=== PATIENT | female | born 1940 | race African-American/Black ===

== ENCOUNTER 2016-12-21 09:35 | Day surgery (SDC) | payer MEDICARE ==
[~2016-12-21] VITALS: Ht 160 cm; Wt 77.3 kg
--- NOTE | ~2016-12-21 | OP ---
PATIENT NAME: MIGUELITO GUTIERREZ MEDICAL RECORD: [id number] :44 LOCATION:D.OPS ADMISSION DATE: SURGEON: ALIDA BISHOP DO DATE OF OPERATION: 12/21/2016 PROCEDURE: Colonoscopy with hot forcep polypectomy. INDICATIONS FOR PROCEDURE: Personal history of colonic polyps and family history positive for colon cancer in her brother. SCOPE: Olympus video pediatric colonoscope. MEDICATIONS: Propofol 430 mg IV per anesthesia. ESTIMATED BLOOD LOSS: Minimal withdrawal time 9 minutes. COMPLICATIONS: None. FINDINGS: Informed consent was given. The patient was made comfortable with the above medication. After reaching an adequate level of sedation by slow IV push, the patient was placed on her left side. A digital rectal examination was performed. On the digital examination, the patient had apparent medium to large hemorrhoids without active bleeding. There was also some questionable condylomatous changes. After this, the endoscope was advanced under direct visualization through the anus to the cecum, where the appendiceal orifice and ileocecal valve were visualized. The scope was slowly withdrawn and mucosa was carefully examined. The prep was fair to good. There was a single polyp located in the transverse colon which was benign appearing and sessile. It measured approximately 4-5 mm in diameter. It was removed in 1 piece with hot forceps and completely retrieved. There was no significant bleeding. Retroflexion was performed in the rectum where a small nonbleeding internal hemorrhoids were visualized. The endoscope is withdrawn from the patient. The patient tolerated the procedure well and there were no complications. IMPRESSION: 1. Transverse colon polyp, which was benign appearing and sessile in the transverse colon. It was removed with hot forceps. 2. Small nonbleeding internal hemorrhoids. 3. Medium to large external hemorrhoids without active bleeding. 4. Condylomatous changes perianally. PLAN AND RECOMMENDATIONS: 1. Discharge home when recovery parameters are met. 2. High fiber diet. 3. Continue current medications. 4. We will make a referral to surgery for evaluation of possible anal condyloma, possible biopsies as well as the large external hemorrhoids. 5. Recommend a repeat colonoscopy in 3-5 years for personal history of polyps and family history of colon cancer. TRANSINT:[id number] Voice Confirmation ID: [id number] DOCUMENT ID: [id number] OPERATIVE REPORT [id number] MIGUELITO GUTIERREZALIDA BASHIR DO CC: [id number] DICTATION DATE: 12/21/16 1316 [employer] ANALYST: 12/22/16 0032 [facility] [place] 12/21/[address] [facility] [address] [id number]
--- NOTE | ~2016-12-21 | CN ---
PATIENT NAME:MIGUELITO GUTIERREZ MEDICAL RECORD: [id number] : 44 LOCATION:D.OPS ADMIT DATE: ACCOUNT: [id number] CONSULTING PHYSICIAN: WON KIDD MD REFERRING PHYSICIAN: ALIDA BISHOP DO DATE OF CONSULTATION: 12/21/2016 CHIEF COMPLAINT: Condyloma. HISTORY OF PRESENT ILLNESS: The patient underwent a colonoscopy. 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 I was asked to see the patient in consultation. The patient is a poor historian. She states that the lesions have been present for a long time. Palpation aggravates. Nothing alleviates. The amount of tenderness that she has particularly on vaginal examination limits my ability to really evaluate the vagina other than some light palpation. There are nodules that are verrucous and may represent squamous cell cancer around the anus. They involve the perineum as well as the vagina. I think the patient would be best treated by a gynecologic oncologist. We are going to see if we can get her in to a gynecologic oncologist. I will have my office staff to start working on that. HOME MEDICATIONS: Elavil, Sensipar, Nexium, Bystolic, Pravachol, Lyrica. ALLERGIES: No known drug allergies. SOCIAL HISTORY: Nonsmoker. PAST MEDICAL AND SURGICAL HISTORY: History of renal transplant, arthritis, gastroesophageal reflux, hypertension, liver fibrosis, history of hysterectomy, prior colonoscopy as well. REVIEW OF SYSTEMS: Limited due to the patient is a poor historian. PHYSICAL EXAMINATION: GENERAL: The patient does not appear acutely ill. She does not appear chronically ill. VITAL SIGNS: Reviewed. The entire examination was performed in the presence of a female. HEAD: External ears appear normal. EYES: Extraocular movements are intact. NECK: Trachea is midline. CHEST: No intercostal retractions. PULMONARY: Nonlabored. No stridor. ABDOMEN: Nontender. EXTREMITIES: No peripheral cyanosis. INTEGUMENT: No rash. Verrucous lesions as described above. BACK: Mild thoracic kyphosis. LYMPHATICS: No lymphangitic streaking of the exposed extremities. PSYCHIATRIC: Normal affect. NEUROLOGIC: There is evidence of loss of higher cortical functioning. 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 CONSULT REPORT [id number] MIGUELITO GUTIERREZ PLAN: Referral to gynecologic oncologist as I think the patient is going to require a pretty extensive resection and reconstruction. TRANSINT:[id number] Voice Confirmation ID: [id number] DOCUMENT ID: [id number] WON KIDD MD CC: MORIAH WILKINSON MD and ALIDA BISHOP DO [id number] DICTATION DATE: 12/21/16 165 [employer] ELECTRICIAN: 12/22/16 0154 [facility] 12/21/16 [id number] [place] [address]
[~2016-12-21 09:35] MED LIST: ASPIRIN325 MG PO; BYSTOLIC5 MG PO; CO Q-10100 MG PO; ELAVIL25 MG PO; FERREX 28 TABL1 EACH; LYRICA150 MG PO; MAG-OX 400 MG400 MG PO; MYFORTIC360 MG PO; NEXIUM40 MG PO; PRAVACHOL20 MG PO; PREMARIN0.3 MG; PROGRAF0.5 MG PO; SENSIPAR30 MG PO; TOPROL XL50 MG PO
[2016-12-21 10:58] LABS: BASOPHILS 0.4 % (0-2); EOSINOPHILS 2.1 % (0-7); HEMATOCRIT 38.3 % (36.0-48.0); HEMOGLOBIN 12.2 g/dL (12-16); IMMATURE GRANULOCYTES 0.2 % (0-5); LYMPHOCYTES 26.7 % (15-50); MCH 27.5 pg (26.0-34.0); MCHC 31.9 g/dL (31.0-37.0); MCV 86.3 fL (80.0-100.0); MEAN PLATELET VOLUME 11.5 fL (7.4-10.4); MONOCYTES 8.2 % (2-11); NEUTROPHILS 62.4 % (40-80); RBC 4.44 10x6/uL (4.00-5.40); WBC 4.9 10x3/uL (4.8-10.8)
[2016-12-21 11:03] VITALS: BP 141/74; Ht 160 cm; Wt 77.3 kg
[2016-12-21 11:04] LABS: PLATELET COUNT 219 10x3/uL (130-400)
[2016-12-21 11:05] LABS: APTT 40.5 SECONDS (22.8-39.4); INR 1.46 (0.85-1.17); PROTIME 17.7 SECONDS (11.6-15.0)
[2016-12-21 11:15] LABS: CALC OSMOLALITY 282 mosm/kg (275-300); CALCIUM 9.1 mg/dL (8.5-10.1); CARBON DIOXIDE 26.2 mmol/L (21.0-32.0); CHLORIDE - SERUM 106 mmol/L (98-107); CREATININE - SERUM 0.7 mg/dL (0.6-1.3); GLUCOSE 98 mg/dL (74-106); POTASSIUM - SERUM 3.9 mmol/L (3.5-5.1); SODIUM 143 mmol/L (136-145); UREA NITROGEN 8 mg/dL (7-18); eGFR NON AFRICAN AMERICAN 87 mL/min (90-120)
== END 2016-12-21 15:35 | disposition home or self-care (01) ==
LOC: D.OPS 09:35
PROVIDERS: Anesthesiology
DX: K63.5 Polyp of colon (principal); K64.8 Other hemorrhoids; K64.4 Residual hemorrhoidal skin tags; A63.0 Anogenital (venereal) warts; Z86.010 Personal history of colon polyps; Z80.0 Family history of malignant neoplasm of digestive organs; Z79.899 Other long term (current) drug therapy; Z94.0 Kidney transplant status; K74.0 Hepatic fibrosis